=== PATIENT | male | born 1970 | race Caucasian/White ===

== ENCOUNTER 2019-07-22 22:28 | Inpatient (IN) ==
[2019-07-22] MEDS ORDERED: MOM Conc 10 ML UD.LIQ PO PRN (22:37)
[2019-07-22] MEDS ORDERED: *HR* LORazepam 1 MG TABLET PO PRN (22:37)
[2019-07-22] MEDS ORDERED: hydrOXYzine pamoate 25 MG CAPSULE PO PRN (22:37)
[2019-07-22] MEDS ORDERED: traZODone 50 MG TABLET PO PRN (22:37)
[2019-07-22] MEDS ORDERED: Ibuprofen 400 MG TABLET PO PRN (22:37)
[2019-07-22] MEDS ORDERED: Haloperidol Lactate 5 MG/ML VIAL IM PRN (22:37)
[2019-07-22] MEDS ORDERED: Mag Hydrox/Al Hydrox/Simeth 30 ML UDC PO PRN (22:37)
[2019-07-22] MEDS ORDERED: *HR* LORazepam 2 MG/ML VIAL IM PRN (22:37)
[2019-07-23] MEDS ORDERED: OLANZapine 10 MG VIAL IM ONE (01:32)
[2019-07-23] MEDS ORDERED: OLANZapine 10 MG TAB.RAPDIS PO ONE (01:34)
--- NOTE | 2019-07-23 09:34 | Psychiatry History & Physical ---
Date of Encounter: 07/23/19 Time of Encounter: 09:31 History of Present Illness Patient Stated Chief Complaint: Estela Medicare Admission Attestation: For traditional Medicare patients the provided hospital inpatient services are reasonable and necessary and in the case of services not specified as inpatient-only under 42 CFR 419.22 (n), that they are appropriately provided as inpatient services in accordance 42 CFR 412.3. For Critical Access Hospital the patient may reasonably be expected to be discharged or transferred to a hospital within 96 hours after admission to the Critical Access Hospital. Admitted From: Hospital to Hospital Transfer Plans for Post Hospital Care: Transfer [facility] (Transfer to [facility]) History of Present Illness: Mr. Cartagena is a 49 year old male with PMH of depression, anxiety, bipolar, DMII, and HTN presented to ED 07/22/19 for talkativeness and manic episode. Reportedly went to his ex-girlfriend's house to make her eggs and she thought "I was wacky" so she asked him to leave.He was transferred from [place]. He reports feeling good and that he does not want to be at [facility], he wants to be at the [facility] and under the care of his psychiatrist there. Denies current and past suicidal or homicidal ideation. Currently on quetiapine, escitalopram, hydroxyzine, lamictel, and metformin; uses [facility]. Patient is actively manic with borderline and narcissistic traits.Reports elevated mood, distractibility, irritability and flight of ideas. States that he does feel elevated and sometimes finds himself "spacing out" when his mood is elevated. He also states that he is very fidgety and is unable to control his fidgeting when he has elevated mood. Reports having to use his quetiapine for sleep, otherwise he won't be able to sleep. Reports having two psychiatrists, one in [place] where he reports poor experience and that the physician "didn't do me well" and another at the [facility] that the patient overwhelmingly admires. Does not have a thera pist because he's comfortable with [facility]. When asked about hospitalizations, patient reports that he always gets mistreated at [facility]'s ED and that it is not a good place to get treated. Reports that he has a brother with severe depression that he wants to talk to right now. Denies having the need to be at [facility] and would like to leave.Patient frequently brings up having to talk to 's director for his concerns. Past Med Surg Social Fam HX - Past Medical History Medical history: CVA, diabetes, hyperlipidemia, hypertension - Past Psychiatric History Psychiatric history: Reports: anxiety, bipolar, depression, previous psychiatric hospitalization Family psychiatric history: Yes Family Psychiatric History Details: Brother with depression Family History of Suicide: None - Past Surgical History Surgical History: non-contributory - Social History Smoking Status: Current every day smoker Smokeless Tobacco Status: No Alcohol use: none Drug use: none Current living situation: Home, With Family Activity Level: Independent ambulation Recent Out of Country Travel Within the Last 8 Weeks: No Exposure or Possible Exposure to Illness During Travel: No Medications & Allergies Quetiapine Fumarate [Seroquel] 300 mg PO HS 07/23/19 [History] lamoTRIgine [Lamictal] 100 mg PO HS 07/23/19 [History] Allergy/AdvReac Type Severity Reaction Status Date / Time No Known Allergies Allergy Verified 07/23/19 09:53 Review of Systems Constitutional: Denies: fever, chills Eyes: Denies: vision change Ears, Nose, Throat: Denies: hearing loss Cardiovascular: Denies: chest pain, palpitations Respiratory: Denies: cough, dyspnea Gastrointestinal: Denies: abdominal pain, nausea, vomiting Genitourinary male: Denies: urgency, dysuria Musculoskeletal: Denies: back pain, joint swelling Integumentary: Denies: rash, lesions Neurological: Denies: headache, weakness Psychiatric: Reports: depression, anxiety, anhedonia, irritability, mood swings, panic attacks. Denies: abnormal sleep pattern, suicidal ideation, homicidal ideation, auditory hallucinations, visual hallucinations Endocrine: Denies: fatigue, heat or cold intolerance Hematologic/Lymphatic: Denies: easy bleeding, easy bruising Allergic/Immunologic: Denies: urticaria Exam - HEENT Head exam IM: Present: atraumatic, normocephalic Eye exam IM: Present: EOMI, normal appearance ENT exam IM: Present: mucous membranes moist - Neurological Neurological exam: Present: CN II-XII intact (grossly), alert - Respiratory Respiratory exam IM: Absent: respiratory distress - GI/Abdominal GI/Abdominal exam IM: Absent: no peritoneal signs - Extremities Extremities exam IM: Present: full ROM - Skin Skin exam IM: Present: dry, normal color, warm. Absent: abrasion - Constitutional Vitals: Temp Pulse Resp BP Pulse Ox 98.4 F 77 18 140/87 95 07/22/19 22:30 07/22/19 22:30 07/22/19 22:30 07/22/19 22:30 07/22/19 22:30 General appearance: age & developmentally appropriate, well-groomed, average - Musculoskeletal Gait: normal Station: relaxed Strength & Tone: normal for patient - Psychiatric Patient Orientation: Yes Person, Yes Time, Yes Place, Yes Circumstance Level of alertness: Alert, Follows commands Behavior: cooperative, anxious, agitated, restless, impulsive, talkative Psychomotor activity: Agitated Eye Contact: Minimal Contact Mood Description: Anxious, Elevated, Irritable Affect description: full range Speech Volume: Normal Speech pattern: normal rhythm, normal tone, fluent, spontaneous, excessive Language & Vocabulary: consistent with education Thought Process: Intact, Logical, Linear, Flight of Ideas Thought Content: No Suicidal ideation, No Homicidal ideation, No Overt delusions Perceptual Disturbances: No Auditory hallucinations, No Visual hallucinations Attention Span Ability: Capable of Sustained Attention Memory Description: Grossly Intact Patient Reliability: Reliable Historian Fund of knowledge: Yes average Intelligence Estimate: Average Judgment: Fair Insight: Partial Assessment and Plan (1) Bipolar I disorder with estela Current visit: Yes Status: Acute Plan: Close observation, Suicide Precautions per unit protocol, Encourage participation in unit milieu, Group Therapy, Monitor appetite Additional Plan: Plan is to transfer patient to the [facility] for inpatient admission and to resume his home medications Risks, benefits, side effects, alternatives discussed w/pt: Yes Patient agreeable to treatment: Yes Plans for Post Hospital Care: Transfer [facility] Estimated Length of Stay (Days): 1 - Attending Attestation I examined this patient and my medical decision-making was reviewed with the Resident Physician. I agree with the documented findings, disposition and treatment plan as described except to the extent set forth below. Patient continues to be very manic. Despite receiving when necessary Geodon, Zyprexa, Haldol, Ativan, and Benadryl. He is still hyperverbal and pressured. He maintains that he did nothing wrong by going to his ex-girlfriend's house and trying to cook or breakfast. He has been intrusive on the unit frequently pacing and going up to the nurse's station. He is having some black and white thinking regarding past providers being either all good or all bad. He was noted to be pulling all the books off the shelf and rearranging them.
[2019-07-23 14:59] VITALS: BP 137/84
--- NOTE | 2019-07-24 11:04 | Discharge Summary ---
Date of Encounter: 07/23/19 Time of Encounter: 10:00 Diagnosis - Discharge Diagnosis (1) Bipolar I disorder with lakshmi Status: Acute Medications - Discharge Medications Quetiapine Fumarate [Seroquel] 300 mg PO HS 07/23/19 [History] lamoTRIgine [Lamictal] 100 mg PO HS 07/23/19 [History] Allergy/AdvReac Type Severity Reaction Status Date / Time No Known Allergies Allergy Verified 07/23/19 09:53 Provider Date of admission: 07/22/19 22:28 Discharging clinician: Fatuma Solares Psychiatry Exam - Constitutional Vitals: Temp Pulse Resp BP Pulse Ox 98.1 F 92 17 137/84 97 07/23/19 14:58 07/23/19 14:58 07/23/19 14:58 07/23/19 14:58 07/23/19 14:58 General appearance: disheveled - Musculoskeletal Gait: brisk Station: stooped Strength & Tone: normal for patient - Psychiatric Patient Orientation: Yes Person, Yes Time, Yes Place Level of alertness: Alert Behavior: impulsive, talkative, dramatic Psychomotor activity: Increased Eye Contact: Intense Contact Mood Description: Labile Affect description: labile Speech Volume: Loud Speech pattern: pressured Thought Process: Tangential Thought Content: No Suicidal ideation, No Homicidal ideation, Yes Paranoid delusion Perceptual Disturbances: Yes Auditory hallucinations Attention Span Ability: Unable to Focus, Unable to Sustain Attention Memory Description: Immediate Impaired, Recent Intact, Remote Intact Patient Reliability: Questionable Historian Fund of knowledge: Yes average Intelligence Estimate: Average Judgment: Poor Insight: None Hospital Course Hospital course: Mr. Cartagena is a 49 year old male who was admitted for manic symptoms with psychosis she he was found to be a [facility] patient when he arrived at the unit so transfer arrangements were made for him to go to the [facility]. Time spent discussing smoking cessation with patient: 3 to 10 minutes Does patient wish to continue nicotine replacement upon disc: No - Time Spent with Patient Total time spent providing and/or coordinating discharge services: 20 Less than 30 minutes Specific discharge activities: [facility] the [facility] Assessment and Plan - Patient/Caregiver Discharge Instructions Activity: other ([facility]) Diet: diabetic diet Additional Instructions: [facility] - Follow up Plan Functional capacity at discharge: independent ambulation Overall status at discharge: patient is not back to baseline Disposition: Transfer Psychiatric Hosp Quality - Multiple Antipsychotics Patient discharged on 2 or more antipsychotic medications: No Procedures - Procedures Procedures: Crisis Stabilization
== END 2019-07-23 18:20 | DRG 885 ==
LOC: 1ANU 22:28
PROVIDERS: ADMIT Psychiatry & Neurology Psychiatry; ATTEND Psychiatry & Neurology Psychiatry